=== PATIENT | male | born 1990 | race Two or more races ===

== ENCOUNTER 2016-06-24 21:51 | Emergency (ER) | payer OTHER ==
[2016-06-24] MEDS ORDERED: KETOROLAC 30 MG/ML VIAL (J1885) As Ordered ONE (22:17)
[2016-06-24] MEDS ORDERED: ONDANSETRON 4MG/2ML VIAL (J2405) As Ordered ONE (22:17)
[2016-06-24 22:31] LABS: BASO % 0.2 % (0.0-1.0); EOS # 0.2 K/mm3 (0.0-0.50); EOS % 2.7 % (0.0-3.0); LARGE UNSTAINED CELL # 0.1 K/mm3 (0.0-0.4); LARGE UNSTAINED CELL % 1.3 % (0.0-4.0); LYMPH # 3.5 K/mm3 (1.5-6.5); LYMPH % 7.6 % (24.0-44.0); MEAN CORPUSCULAR HEMOGLOBIN 30.2 pg (27.0-33.0); MEAN CORPUSCULAR HGB CONC 34.1 g/dl (32.0-36.5); MEAN CORPUSCULAR VOLUME 88.6 fl (80.0-96.0); MONO # 0.4 K/mm3 (0.0-0.8); MONO % 4.6 % (0.0-5.0); NEUTROPHILS % 83.6 % (36.0-66.0); PLATELET COUNT, AUTOMATED 235 k/mm3 (150-450); RED CELL DISTRIBUTION WIDTH 12.9 % (11.5-14.5); WHITE BLOOD COUNT 8.4 K/mm3 (4.0-10.0)
[2016-06-24 22:34] LABS: INR 1.13
[2016-06-24 22:47] LABS: ALBUMIN 3.5 GM/DL (3.2-5.2); ALBUMIN/GLOBULIN RATIO 1.06 (1.00-1.93); ALKALINE PHOSPHATASE 76 U/L (45-117); ALT/SGPT 21 U/L (12-78); AMYLASE 43 U/L (25-115); ANION GAP 9 MEQ/L (8-16); AST/SGOT 12 U/L (15-37); BILIRUBIN,DIRECT 0.2 MG/DL (0.0-0.2); BILIRUBIN,TOTAL 0.6 MG/DL (0.2-1.0); BLOOD UREA NITROGEN 14 MG/DL (7-18); CALCIUM LEVEL 8.3 MG/DL (8.5-10.1); CARBON DIOXIDE LEVEL 27 MEQ/L (21-32); CHLORIDE LEVEL 105 MEQ/L (98-107); CREATININE FOR GFR 1.16 MG/DL (0.70-1.30); GLOMERULAR FILTRATION RATE > 60.0 (>60); GLUCOSE, FASTING 102 MG/DL (70-105); POTASSIUM SERUM 3.8 MEQ/L (3.5-5.1); SODIUM LEVEL 141 MEQ/L (136-145); TOTAL PROTEIN 6.8 GM/DL (6.4-8.2)
--- NOTE | 2016-06-24 23:36 | EDDOCDS ---
Nurse's Notes [facility] Name: Frandy Cruz Age: 26 yrs Sex: Male : 1990 Arrival Date: 06/24/2016 Time: 21:51 Bed I5 / M5 Private [facility] Diagnosis: Nausea and vomiting;Diarrhea, unspecified Presentation: 06/24 21:53 Presenting complaint: Patient states: that he started vomiting this morning and can't ms18 keep any food or water down. Adult Sepsis Screening: The patient does not have new or worsening altered mentation. Patient's respiratory rate is less than 22. Systolic blood pressure is greater than 100. Patient has a qSOFA score of 0- Negative Sepsis Screen. Suicide/Homicide risk assessment- the patient denies having any suicidal and/or homicidal ideations and does not present with any other emotional, behavioral or mental health complaints. 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 Transition of care: patient was not received from another setting of care. 21:53 Acuity: DEN Level 3 ms18 21:53 Method Of Arrival: Walkin/Carried/Asstd ms18 Triage Assessment: 21:54 General: Appears in no apparent distress, comfortable, Behavior is appropriate for age, ms18 cooperative. Pain: Location: chest and body aches Pain currently is 4 out of 10 on a pain scale. HIV screening NA for this visit Offered previously. Neurological: No deficits noted. Respiratory: Airway is patent Respiratory effort is even, unlabored. Derm: Skin is pink, warm & dry. normal. Historical: - Allergies: no known allergies; - Home Meds: 1. albuterol sulfate 90 mcg/actuation Inhl aepb 2 puffs every 4-6 hours - PMHx: Asthma; - PSHx: none; - Social history: Smoking status: Patient states was never smoker of tobacco. No barriers to communication noted, The patient speaks fluent Faroese. - Family history: Not pertinent. - : The pt / caregiver states he / she is not on anticoagulants. Home medication list is obtained from the patient. - Exposure Risk Screening:: None identified. Screenin:32 Screening information is obtained from the patient. Fall risk: No risks identified. tm5 Assistance ADL's: requires no assistance with activities of daily living. Abuse/DV Screen: The patient / caregiver reports he/she is: not in a situation that causes fear, pain or injury. Nutritional screening: No deficits noted. Advance Directives: There is no active DNR order. home support is adequate. Assessment: 22:22 General: pt states that he just voided before he came to the ER & is aware that Urine tm5 sample is needed. 22:32 General: Appears in no apparent distress, Behavior is appropriate for age, cooperative. tm5 Pain: Denies pain. Neurological: Level of Consciousness is awake, alert, Oriented to person, place, time. Respiratory: No deficits noted. Airway is patent Respiratory effort is even, unlabored, Respiratory pattern is regular, symmetrical, Breath sounds are clear bilaterally. GI: Abdomen is non- distended Bowel sounds present X 4 quads. Abd is soft and non tender X 4 quads. Reports nausea, vomiting. : No deficits noted. Derm: Skin is pink, warm & dry. normal. 23:06 General: Appears in no apparent distress, comfortable, Behavior is appropriate for age, jmb cooperative. Neurological: Level of Consciousness is awake, alert, obeys commands, Oriented to person, place, time, Speech is normal, Facial symmetry appears normal, Facial symmetry: tongue is midline. Respiratory: Airway is patent Respiratory effort is even, unlabored, Respiratory pattern is regular, symmetrical. 23:26 General: Patient instructed on discharge instructions. Patient asked if there were any b questions regarding discharge, patient stated no. IV discontinued per hospital policy. Patient signed discharge instructions. Patient discharged in stable condition. . Vital Signs: 21:52 BP 151 / 70; Pulse 131; Resp 20; Temp 100.3(O); Pulse Ox 96% on R/A; Weight 93.44 kg dd6 (R); Height 5 ft. 7 in. (170.18 cm) (R); 23:31 BP 127 / 60; Pulse 117; Resp 20; Temp 99.5(O); Pulse Ox 96% on R/A; Pain 0/10; jmb 21:52 Body Mass Index 32.26 (93.44 kg, 170.18 cm) dd6 Vitals: 21:52 Log In Time: June 24, 2016 at 21:48. dd6 ED Course: 21:52 Patient visited by Shaji Rogers PCA. dd6 21:52 [facility] is Private Physician. dd6 21:52 Patient moved to Waiting dd6 21:53 Patient moved to Pre RCE dd6 21:54 Triage Initiated ms18 21:55 Patient moved to Triage 2 ms18 21:56 [facility] ke 21:56 Patient visited by Favian Horn FNP. ke 21:56 Patient visited by Favian Horn FNP. ke 22:08 Patient moved to I5 / M5 ms2 22:13 [facility] Payment Agreement was scanned into [employer] and attached to record. gjb 22:25 Patient visited by Elsa Mckeon,ANGELINA. tm5 22:25 Patient moved to radiology. tm5 22:28 Patient visited by Elsa Mckeon,ANGELINA. tm5 22:28 Patient moved back from radiology. tm5 22:32 Patient visited by Elsa Mckeon,ANGELINA. tm5 22:32 The patient / caregiver is instructed regarding the plan of care and ED course. Door tm5 closed. Lights dimmed. Pillow given. 22:32 Inserted saline lock: 20 gauge in left antecubital area and blood collected. Labs tm5 drawn. (by ED staff). 23:07 Patient visited by Chung Santana,ANGELINA. jmb 23:23 [facility] is Referral Physician. ke 23:26 Discontinued lock intact, bleeding controlled, pressure dressing applied, No jmb redness/swelling at site. No procedures done that require assistance. Administered Medications: 22:21 Drug: NS 0.9% 1000 ml [sodium chloride 0.9 % intravenous solution] Route: IV; Rate: tm5 bolus; Site: left antecubital; 22:22 Drug: Ondansetron 4 mg [ondansetron HCl 2 mg/mL intravenous solution (2 mL)] Route: tm5 IVP; Site: left antecubital; 22:22 Drug: ketorolac 30 mg [ketorolac 30 mg/mL (1 mL) injection solution (1 mL)] Route: IVP; tm5 Site: left antecubital; Order Results: Lab Order: Amylase; SPEC'M 06/24/16 22:20 Test: AMYLASE; Value: 43; Range: 25-115; Units: U/L; Status: F Lab Order: Basic Metabolic Profile; SPEC'M 06/24/16 22:20 Test: GLUCOSE, FASTING; Value: 102; Range: 70-105; Units: MG/DL; Status: F Test: BLOOD UREA NITROGEN; Value: 14; Range: 7-18; Units: MG/DL; Status: F Test: CREATININE FOR GFR; Value: 1.16; Range: 0.70-1.30; Units: MG/DL; Status: F Test: GLOMERULAR FILTRATION RATE; Value: > 60.0; Range: >60; Status: F Test: SODIUM LEVEL; Value: 141; Range: 136-145; Units: MEQ/L; Status: F Test: POTASSIUM SERUM; Value: 3.8; Range: 3.5-5.1; Units: MEQ/L; Status: F Test: CHLORIDE LEVEL; Value: 105; Range: 98-107; Units: MEQ/L; Status: F Test: CARBON DIOXIDE LEVEL; Value: 27; Range: 21-32; Units: MEQ/L; Status: F Test: ANION GAP; Value: 9; Range: 8-16; Units: MEQ/L; Status: F Test: CALCIUM LEVEL; Value: 8.3; Range: 8.5-10.1; Abnormal: Below low normal; Units: MG/DL; Status: F Test Note: ; Units are mL/min/1.73 m2 Chronic Kidney Disease Staging per NKF: Stage I & II GFR >=60 Normal to Mildly Decreased Stage III GFR 30-59 Moderately Decreased Stage IV GFR 15-29 Severely Decreased Stage V GFR <15 Very Little GFR Left ESRD GFR <15 on TAILER IN Lab Order: CBC with Diff; SPEC'M 06/24/16 22:20 Test: WHITE BLOOD COUNT; Value: 8.4; Range: 4.0-10.0; Units: K/mm3; Status: F Test: RED BLOOD COUNT; Value: 5.03; Range: 4.30-6.10; Units: M/mm3; Status: F Test: HEMOGLOBIN; Value: 15.2; Range: 14.0-18.0; Units: g/dl; Status: F Test: HEMATOCRIT; Value: 44.6; Range: 42.0-52.0; Units: %; Status: F Test: MEAN CORPUSCULAR VOLUME; Value: 88.6; Range: 80.0-96.0; Units: fl; Status: F Test: MEAN CORPUSCULAR HEMOGLOBIN; Value: 30.2; Range: 27.0-33.0; Units: pg; Status: F Test: MEAN CORPUSCULAR HGB CONC; Value: 34.1; Range: 32.0-36.5; Units: g/dl; Status: F Test: RED CELL DISTRIBUTION WIDTH; Value: 12.9; Range: 11.5-14.5; Units: %; Status: F Test: PLATELET COUNT, AUTOMATED; Value: 235; Range: 150-450; Units: k/mm3; Status: F Test: NEUTROPHILS %; Value: 83.6; Range: 36.0-66.0; Abnormal: Above high normal; Units: %; Status: F Test: LYMPH %; Value: 7.6; Range: 24.0-44.0; Abnormal: Below low normal; Units: %; Status: F Test: MONO %; Value: 4.6; Range: 0.0-5.0; Units: %; Status: F Test: EOS %; Value: 2.7; Range: 0.0-3.0; Units: %; Status: F Test: BASO %; Value: 0.2; Range: 0.0-1.0; Units: %; Status: F Test: LARGE UNSTAINED CELL %; Value: 1.3; Range: 0.0-4.0; Units: %; Status: F Test: NEUTROPHILS #; Value: 7.0; Range: 1.8-7.7; Units: K/mm3; Status: F Test: LYMPH #; Value: 3.5; Range: 1.5-6.5; Units: K/mm3; Status: F Test: MONO #; Value: 0.4; Range: 0.0-0.8; Units: K/mm3; Status: F Test: EOS #; Value: 0.2; Range: 0.0-0.50; Units: K/mm3; Status: F Test: BASO #; Value: 0.0; Range: 0.0-0.2; Units: K/mm3; Status: F Test: LARGE UNSTAINED CELL #; Value: 0.1; Range: 0.0-0.4; Units: K/mm3; Status: F Lab Order: Lipase; SPEC'M 06/24/16 22:20 Test: LIPASE; Value: 59; Range: 73-393; Abnormal: Below low normal; Units: U/L; Status: F Lab Order: Liver Profile; SPEC'M 06/24/16 22:20 Test: AST/SGOT; Value: 12; Range: 15-37; Abnormal: Below low normal; Units: U/L; Status: F Test: ALT/SGPT; Value: 21; Range: 12-78; Units: U/L; Status: F Test: ALKALINE PHOSPHATASE; Value: 76; Range: 45-117; Units: U/L; Status: F Test: BILIRUBIN,TOTAL; Value: 0.6; Range: 0.2-1.0; Units: MG/DL; Status: F Test: BILIRUBIN,DIRECT; Value: 0.2; Range: 0.0-0.2; Units: MG/DL; Status: F Test: TOTAL PROTEIN; Value: 6.8; Range: 6.4-8.2; Units: GM/DL; Status: F Test: ALBUMIN; Value: 3.5; Range: 3.2-5.2; Units: GM/DL; Status: F Test: ALBUMIN/GLOBULIN RATIO; Value: 1.06; Range: 1.00-1.93; Status: F Lab Order: Prothrombin Time Profile\E\INR; [facility] 06/24/16 22:20 Test: PROTHROMBIN TIME; Value: 14.6; Range: 12.3-14.5; Abnormal: Above high normal; Units: SECONDS; Status: F Test: INR; Value: 1.13; Status: F Test Note: ; THERAPUTIC HUMAN INR VALUES INDICATIONS NORMAL RANGES PROPHYLAXIS/TREATMENT OF: VENOUS THROMBOSIS 2.0-3.0 PULMONARY EMBOLISM 2.0-3.0 PREVENTION OF SYSTEMIC EMBOLISM FROM: TISSUE HEART VALVES 2.0-3.0 ACUTE MYOCARDIAL INFARCTION 2.0-3.0 VALVULAR HEART DISEASE 2.0-3.0 ATRIAL FIBRILLATION 2.0-3.0 MECHANICAL VALVES(HIGH RISK) 2.5-3.5 RECURRENT MYOCARDIAL INFARCTION 2.5-3.5 Outcome: 23:24 Discharge ordered by Provider. elliott 23:26 Discharge Assessment: Patient awake, alert and oriented x 3. No cognitive and/or jmb functional deficits noted. Patient verbalized understanding of disposition instructions. Patient awake and alert. obeys commands, Oriented to person, place and time. Patient verbalized understanding of disposition instructions. Patient has no functional deficits. patient administered narcotics - no. The following High Risk Discharge criteria are identified: None. Discharged to home ambulatory, with family. Condition: stable Condition: improved. Discharge instructions given to patient, Instructed on discharge instructions, follow up and referral plans. Demonstrated understanding of instructions, Pt was receptive of discharge instructions/ teaching. No special radiology studies were completed. Property sent home with patient. 23:34 Patient left the ED. emilyb Signatures: Carson Floyd,RN RN ms2 Favian Horn, MERCHANT SEAMAN MERCHANT SEAMAN Shaji Loo, SNUFF BOX FINISHER SNUFF BOX FINISHER dd6 Chung Santana,RN RN Sapphire CruzRN RN ms18 Carolyne Hernández Tonya,RN RN tm5 BRANNON
--- NOTE | 2016-06-24 23:36 | EDDOCDS ---
Physician Documentation [facility] Name: Frandy Cruz Age: 26 yrs Sex: Male : 1990 Arrival Date: 06/24/2016 Time: 21:51 Bed I5 / M5 Private [facility] Disposition: 06/24/16 23:24 Discharged to Home/Self Care. Impression: Nausea and vomiting, Diarrhea, unspecified. - Condition is Stable. - Discharge Instructions: Food Choices to Help Relieve Diarrhea, Adult, Diarrhea, Nausea and Vomiting. - Prescriptions for Zofran 4 mg Oral Tablet - take 1 tablet by ORAL route 4 times per day As needed; 10 tablet. - Medication Reconciliation, Local Pharmacy Hours, Work Release Form - 1 day form. - [facility]; When: 4 - 5 days; Reason: Recheck today's complaints, Continuance of care. - Problem is an ongoing problem. - Symptoms have improved. Historical: - Allergies: no known allergies; - Home Meds: 1. albuterol sulfate 90 mcg/actuation Inhl aepb 2 puffs every 4-6 hours - PMHx: Asthma; - PSHx: none; - Social history: Smoking status: Patient states was never smoker of tobacco. No barriers to communication noted, The patient speaks fluent Occitan. - Family history: Not pertinent. - : The pt / caregiver states he / she is not on anticoagulants. Home medication list is obtained from the patient. - Exposure Risk Screening:: None identified. Vital Signs: 06/24 21:52 BP 151 / 70; Pulse 131; Resp 20; Temp 100.3(O); Pulse Ox 96% on R/A; Weight 93.44 kg / dd6 206 lbs (R); Height 5 ft. 7 in. (170.18 cm) (R); 23:31 BP 127 / 60; Pulse 117; Resp 20; Temp 99.5(O); Pulse Ox 96% on R/A; Pain 0/10; jmb 21:52 Body Mass Index 32.26 (93.44 kg, 170.18 cm) dd6 MDM: 22:06 NS 0.9% 1000 ml IV at bolus once ordered. ke 22:06 Ondansetron 4 mg IVP once ordered. ke 22:06 ketorolac 30 mg IVP once ordered. ke 22:06 IV Saline Lock ordered. ke 22:06 Undress patient appropriately for examination ordered. ke 22:07 Amylase Ordered. EDMS 22:07 Basic Metabolic Profile Ordered. EDMS 22:07 CBC with Diff Ordered. EDMS 22:07 Lipase Ordered. EDMS 22:07 Liver Profile Ordered. EDMS 22:08 Prothrombin Time Profile\E\INR Ordered. EDMS 22:08 Urinalysis Ordered. EDMS 22:08 Urine Culture Ordered. EDMS 22:08 Abdomen, Flat\E\Upright,PA Chest Ordered. EDMS 22:08 NOTHING BY MOUTH+DIET ordered. EDMS 22:13 [facility] Payment Agreement was scanned into [employer] and attached to record. rachel 22:13 Financial registration complete. gjb 23:20 Basic Metabolic Profile Reviewed. ke 23:20 CBC with Diff Reviewed. ke 23:20 Lipase Reviewed. ke 23:20 Liver Profile Reviewed. ke 23:20 Prothrombin Time Profile\E\INR Reviewed. ke 23:20 Amylase Reviewed. ke Administered Medications: 22:21 Drug: NS 0.9% 1000 ml [sodium chloride 0.9 % intravenous solution] Route: IV; Rate: tm5 bolus; Site: left antecubital; 22:22 Drug: Ondansetron 4 mg [ondansetron HCl 2 mg/mL intravenous solution (2 mL)] Route: tm5 IVP; Site: left antecubital; 22:22 Drug: ketorolac 30 mg [ketorolac 30 mg/mL (1 mL) injection solution (1 mL)] Route: IVP; tm5 Site: left antecubital; Signatures: [facility] Favian Horn, HAUL DRIVER HAUL DRIVER Chung MontesRN RN Sapphire Cruz RN RN ms18 Carolyne Hernández Tonya, RN RN tm5 The chart was reviewed and I authenticate all verbal orders and agree with the evaluation and treatment provided.Attachments: 22:13 [facility] Payment Agreement rachel MTDD
--- NOTE | 2016-06-25 08:08 | REP ---
Clinical: Epigastric and abdominal pain. Technique: Upright view of the chest with supine and upright views of the abdomen and pelvis. Findings: Frontal upright view of the chest demonstrates no acute cardiopulmonary process or free air below the diaphragm to suspect pneumoperitoneum. Supine and upright views of the abdomen and pelvis demonstrate nonspecific bowel gas pattern without obstruction or perforation. No organomegaly. Very small calcific flecks are identified scattered throughout the abdomen of uncertain etiology but nonacute in their appearance and distribution. Skeletal structures normal for age. Impression: Nonspecific bowel gas pattern. Signed by Pj Cheney MD 06/25/2016 08:00 A
--- NOTE | 2016-06-27 00:36 | EDDOCDS ---
Nurse's Notes [employer] Name: Frandy Cruz Age: 26 yrs Sex: Male : 1990 Arrival Date: 06/24/2016 Time: 21:51 Bed I5 / M5 [facility] Diagnosis: Nausea and vomiting;Diarrhea, unspecified Presentation: 06/24 21:53 Presenting complaint: Patient states: that he started vomiting this morning and can't ms18 keep any food or water down. Adult Sepsis Screening: The patient does not have new or worsening altered mentation. Patient's respiratory rate is less than 22. Systolic blood pressure is greater than 100. Patient has a qSOFA score of 0- Negative Sepsis Screen. Suicide/Homicide risk assessment- the patient denies having any suicidal and/or homicidal ideations and does not present with any other emotional, behavioral or mental health complaints. Status: The patient is an active duty service writer advisor. Transition of care: patient was not received from another setting of care. 21:53 Acuity: DEN Level 3 ms18 21:53 Method Of Arrival: Walkin/Carried/Asstd ms18 Triage Assessment: 21:54 General: Appears in no apparent distress, comfortable, Behavior is appropriate for age, ms18 cooperative. Pain: Location: chest and body aches Pain currently is 4 out of 10 on a pain scale. HIV screening NA for this visit Offered previously. Neurological: No deficits noted. Respiratory: Airway is patent Respiratory effort is even, unlabored. Derm: Skin is pink, warm & dry. normal. Historical: - Allergies: no known allergies; - Home Meds: 1. albuterol sulfate 90 mcg/actuation Inhl aepb 2 puffs every 4-6 hours - PMHx: Asthma; - PSHx: none; - Social history: Smoking status: Patient states was never smoker of tobacco. No barriers to communication noted, The patient speaks fluent Yi. - Family history: Not pertinent. - : The pt / caregiver states he / she is not on anticoagulants. Home medication list is obtained from the patient. - Exposure Risk Screening:: None identified. Screenin:32 Screening information is obtained from the patient. Fall risk: No risks identified. tm5 Assistance ADL's: requires no assistance with activities of daily living. Abuse/DV Screen: The patient / caregiver reports he/she is: not in a situation that causes fear, pain or injury. Nutritional screening: No deficits noted. Advance Directives: There is no active DNR order. home support is adequate. Assessment: 22:22 General: pt states that he just voided before he came to the ER & is aware that Urine tm5 sample is needed. 22:32 General: Appears in no apparent distress, Behavior is appropriate for age, cooperative. tm5 Pain: Denies pain. Neurological: Level of Consciousness is awake, alert, Oriented to person, place, time. Respiratory: No deficits noted. Airway is patent Respiratory effort is even, unlabored, Respiratory pattern is regular, symmetrical, Breath sounds are clear bilaterally. GI: Abdomen is non- distended Bowel sounds present X 4 quads. Abd is soft and non tender X 4 quads. Reports nausea, vomiting. : No deficits noted. Derm: Skin is pink, warm & dry. normal. 23:06 General: Appears in no apparent distress, comfortable, Behavior is appropriate for age, jmb cooperative. Neurological: Level of Consciousness is awake, alert, obeys commands, Oriented to person, place, time, Speech is normal, Facial symmetry appears normal, Facial symmetry: tongue is midline. Respiratory: Airway is patent Respiratory effort is even, unlabored, Respiratory pattern is regular, symmetrical. 23:26 General: Patient instructed on discharge instructions. Patient asked if there were any b questions regarding discharge, patient stated no. IV discontinued per hospital policy. Patient signed discharge instructions. Patient discharged in stable condition. . Vital Signs: 21:52 BP 151 / 70; Pulse 131; Resp 20; Temp 100.3(O); Pulse Ox 96% on R/A; Weight 93.44 kg dd6 (R); Height 5 ft. 7 in. (170.18 cm) (R); 23:31 BP 127 / 60; Pulse 117; Resp 20; Temp 99.5(O); Pulse Ox 96% on R/A; Pain 0/10; jmb 21:52 Body Mass Index 32.26 (93.44 kg, 170.18 cm) dd6 Vitals: 21:52 Log In Time: June 24, 2016 at 21:48. dd6 ED Course: 21:52 Patient visited by Shaji Rogers PCA. dd6 21:52 [facility] is Private Physician. dd6 21:52 Patient moved to Waiting dd6 21:53 Patient moved to Pre RCE dd6 21:54 Triage Initiated ms18 21:55 Patient moved to Triage 2 ms18 21:56 [facility] ke 21:56 Patient visited by Favian Horn FNP. ke 21:56 Patient visited by Favian Horn FNP. ke 22:08 Patient moved to I5 / M5 ms2 22:13 [facility] Payment Agreement was scanned into [employer] and attached to record. gjb 22:25 Patient visited by Elsa Mckeon,RN. tm5 22:25 Patient moved to radiology. tm5 22:28 Patient visited by Elsa Mckeon,ANGELINA. tm5 22:28 Patient moved back from radiology. tm5 22:32 Patient visited by Elsa Mckeon,ANGELINA. tm5 22:32 The patient / caregiver is instructed regarding the plan of care and ED course. Door tm5 closed. Lights dimmed. Pillow given. 22:32 Inserted saline lock: 20 gauge in left antecubital area and blood collected. Labs tm5 drawn. (by ED staff). 23:07 Patient visited by Chung Santana,ANGELINA. jmb 23:23 [facility] is Referral Physician. ke 23:26 Discontinued lock intact, bleeding controlled, pressure dressing applied, No jmb redness/swelling at site. No procedures done that require assistance. 06/25 08:49 Abdomen, Flat\E\Upright,PA Chest Returned. EDMS 12:02 T-Sheet-- Draft Copy was scanned into [employer] and attached to record. gb Administered Medications: 06/24 22:21 Drug: NS 0.9% 1000 ml [sodium chloride 0.9 % intravenous solution] Route: IV; Rate: tm5 bolus; Site: left antecubital; 22:22 Drug: Ondansetron 4 mg [ondansetron HCl 2 mg/mL intravenous solution (2 mL)] Route: tm5 IVP; Site: left antecubital; 22:22 Drug: ketorolac 30 mg [ketorolac 30 mg/mL (1 mL) injection solution (1 mL)] Route: IVP; tm5 Site: left antecubital; Order Results: Lab Order: Amylase; SPEC'M 06/24/16 22:20 Test: AMYLASE; Value: 43; Range: 25-115; Units: U/L; Status: F Lab Order: Basic Metabolic Profile; 06/24/16 22:20 Test: GLUCOSE, FASTING; Value: 102; Range: 70-105; Units: MG/DL; Status: F Test: BLOOD UREA NITROGEN; Value: 14; Range: 7-18; Units: MG/DL; Status: F Test: CREATININE FOR GFR; Value: 1.16; Range: 0.70-1.30; Units: MG/DL; Status: F Test: GLOMERULAR FILTRATION RATE; Value: > 60.0; Range: >60; Status: F Test: SODIUM LEVEL; Value: 141; Range: 136-145; Units: MEQ/L; Status: F Test: POTASSIUM SERUM; Value: 3.8; Range: 3.5-5.1; Units: MEQ/L; Status: F Test: CHLORIDE LEVEL; Value: 105; Range: 98-107; Units: MEQ/L; Status: F Test: CARBON DIOXIDE LEVEL; Value: 27; Range: 21-32; Units: MEQ/L; Status: F Test: ANION GAP; Value: 9; Range: 8-16; Units: MEQ/L; Status: F Test: CALCIUM LEVEL; Value: 8.3; Range: 8.5-10.1; Abnormal: Below low normal; Units: MG/DL; Status: F Test Note: ; Units are mL/min/1.73 m2 Chronic Kidney Disease Staging per NKF: Stage I & II GFR >=60 Normal to Mildly Decreased Stage III GFR 30-59 Moderately Decreased Stage IV GFR 15-29 Severely Decreased Stage V GFR <15 Very Little GFR Left ESRD GFR <15 on ENGINEERING PROFESSOR Lab Order: CBC with Diff; 06/24/16 22:20 Test: WHITE BLOOD COUNT; Value: 8.4; Range: 4.0-10.0; Units: K/mm3; Status: F Test: RED BLOOD COUNT; Value: 5.03; Range: 4.30-6.10; Units: M/mm3; Status: F Test: HEMOGLOBIN; Value: 15.2; Range: 14.0-18.0; Units: g/dl; Status: F Test: HEMATOCRIT; Value: 44.6; Range: 42.0-52.0; Units: %; Status: F Test: MEAN CORPUSCULAR VOLUME; Value: 88.6; Range: 80.0-96.0; Units: fl; Status: F Test: MEAN CORPUSCULAR HEMOGLOBIN; Value: 30.2; Range: 27.0-33.0; Units: pg; Status: F Test: MEAN CORPUSCULAR HGB CONC; Value: 34.1; Range: 32.0-36.5; Units: g/dl; Status: F Test: RED CELL DISTRIBUTION WIDTH; Value: 12.9; Range: 11.5-14.5; Units: %; Status: F Test: PLATELET COUNT, AUTOMATED; Value: 235; Range: 150-450; Units: k/mm3; Status: F Test: NEUTROPHILS %; Value: 83.6; Range: 36.0-66.0; Abnormal: Above high normal; Units: %; Status: F Test: LYMPH %; Value: 7.6; Range: 24.0-44.0; Abnormal: Below low normal; Units: %; Status: F Test: MONO %; Value: 4.6; Range: 0.0-5.0; Units: %; Status: F Test: EOS %; Value: 2.7; Range: 0.0-3.0; Units: %; Status: F Test: BASO %; Value: 0.2; Range: 0.0-1.0; Units: %; Status: F Test: LARGE UNSTAINED CELL %; Value: 1.3; Range: 0.0-4.0; Units: %; Status: F Test: NEUTROPHILS #; Value: 7.0; Range: 1.8-7.7; Units: K/mm3; Status: F Test: LYMPH #; Value: 3.5; Range: 1.5-6.5; Units: K/mm3; Status: F Test: MONO #; Value: 0.4; Range: 0.0-0.8; Units: K/mm3; Status: F Test: EOS #; Value: 0.2; Range: 0.0-0.50; Units: K/mm3; Status: F Test: BASO #; Value: 0.0; Range: 0.0-0.2; Units: K/mm3; Status: F Test: LARGE UNSTAINED CELL #; Value: 0.1; Range: 0.0-0.4; Units: K/mm3; Status: F Lab Order: Lipase; [facility]' 06/24/16 22:20 Test: LIPASE; Value: 59; Range: 73-393; Abnormal: Below low normal; Units: U/L; Status: F Lab Order: Liver Profile; [facility]' 06/24/16 22:20 Test: AST/SGOT; Value: 12; Range: 15-37; Abnormal: Below low normal; Units: U/L; Status: F Test: ALT/SGPT; Value: 21; Range: 12-78; Units: U/L; Status: F Test: ALKALINE PHOSPHATASE; Value: 76; Range: 45-117; Units: U/L; Status: F Test: BILIRUBIN,TOTAL; Value: 0.6; Range: 0.2-1.0; Units: MG/DL; Status: F Test: BILIRUBIN,DIRECT; Value: 0.2; Range: 0.0-0.2; Units: MG/DL; Status: F Test: TOTAL PROTEIN; Value: 6.8; Range: 6.4-8.2; Units: GM/DL; Status: F Test: ALBUMIN; Value: 3.5; Range: 3.2-5.2; Units: GM/DL; Status: F Test: ALBUMIN/GLOBULIN RATIO; Value: 1.06; Range: 1.00-1.93; Status: F Lab Order: Prothrombin Time Profile\E\INR; [facility] 06/24/16 22:20 Test: PROTHROMBIN TIME; Value: 14.6; Range: 12.3-14.5; Abnormal: Above high normal; Units: SECONDS; Status: F Test: INR; Value: 1.13; Status: F Test Note: ; THERAPUTIC HUMAN INR VALUES INDICATIONS NORMAL RANGES PROPHYLAXIS/TREATMENT OF: VENOUS THROMBOSIS 2.0-3.0 PULMONARY EMBOLISM 2.0-3.0 PREVENTION OF SYSTEMIC EMBOLISM FROM: TISSUE HEART VALVES 2.0-3.0 ACUTE MYOCARDIAL INFARCTION 2.0-3.0 VALVULAR HEART DISEASE 2.0-3.0 ATRIAL FIBRILLATION 2.0-3.0 MECHANICAL VALVES(HIGH RISK) 2.5-3.5 RECURRENT MYOCARDIAL INFARCTION 2.5-3.5 Radiology Order: Abdomen, Flat\E\Upright,PA Chest Test: Abdomen, Flat\E\Upright,PA Chest REASON FOR EXAMINATION: Abdomen Pain; Clinical: Epigastric and abdominal pain.; ; Technique: Upright view of the chest with supine and upright views of the; abdomen and pelvis.; ; Findings: Frontal upright view of the chest demonstrates no acute; cardiopulmonary process or free air below the diaphragm to suspect; pneumoperitoneum. Supine and upright views of the abdomen and pelvis demonstrate; nonspecific bowel gas pattern without obstruction or perforation. No; organomegaly. Very small calcific flecks are identified scattered throughout the; abdomen of uncertain etiology but nonacute in their appearance and distribution.; Skeletal structures normal for age.; ; Impression:; Nonspecific bowel gas pattern.; ; ; Signed by; Pj Cheney MD 06/25/2016 08:00 A; Outcome: 23:24 Discharge ordered by Provider. ke 23:26 Discharge Assessment: Patient awake, alert and oriented x 3. No cognitive and/or jmb functional deficits noted. Patient verbalized understanding of disposition instructions. Patient awake and alert. obeys commands, Oriented to person, place and time. Patient verbalized understanding of disposition instructions. Patient has no functional deficits. patient administered narcotics - no. The following High Risk Discharge criteria are identified: None. Discharged to home ambulatory, with family. Condition: stable Condition: improved. Discharge instructions given to patient, Instructed on discharge instructions, follow up and referral plans. Demonstrated understanding of instructions, Pt was receptive of discharge instructions/ teaching. No special radiology studies were completed. Property sent home with patient. 23:34 Patient left the ED. boaz Signatures: Dispatcher [employer] EDMS Carson Floyd,RN RN ms2 Harriett Wen, Reg Reg gb Favian Horn, HVAC R TECH HVAC R TECH ke Shaji Rogers, CUTTER OUT CUTTER OUT dd6 Chung Santana RN RN jmb Smith, Mallory, RN RN ms18 Carolyne Hernández Tonya, RN RN tm5 Chart Complete MTDD
--- NOTE | 2016-06-27 00:36 | EDDOCDS ---
Physician Documentation [facility] Name: Frandy Cruz Age: 26 yrs Sex: Male : 1990 Arrival Date: 06/24/2016 Time: 21:51 Bed I5 / M5 [facility] Disposition: 06/24/16 23:24 Discharged to Home/Self Care. Impression: Nausea and vomiting, Diarrhea, unspecified. - Condition is Stable. - Discharge Instructions: Food Choices to Help Relieve Diarrhea, Adult, Diarrhea, Nausea and Vomiting. - Prescriptions for Zofran 4 mg Oral Tablet - take 1 tablet by ORAL route 4 times per day As needed; 10 tablet. - Medication Reconciliation, Local Pharmacy Hours, Work Release Form - 1 day form. - [facility]; When: 4 - 5 days; Reason: Recheck today's complaints, Continuance of care. - Problem is an ongoing problem. - Symptoms have improved. Historical: - Allergies: no known allergies; - Home Meds: 1. albuterol sulfate 90 mcg/actuation Inhl aepb 2 puffs every 4-6 hours - PMHx: Asthma; - PSHx: none; - Social history: Smoking status: Patient states was never smoker of tobacco. No barriers to communication noted, The patient speaks fluent Slovak. - Family history: Not pertinent. - : The pt / caregiver states he / she is not on anticoagulants. Home medication list is obtained from the patient. - Exposure Risk Screening:: None identified. Vital Signs: 06/24 21:52 BP 151 / 70; Pulse 131; Resp 20; Temp 100.3(O); Pulse Ox 96% on R/A; Weight 93.44 kg / dd6 206 lbs (R); Height 5 ft. 7 in. (170.18 cm) (R); 23:31 BP 127 / 60; Pulse 117; Resp 20; Temp 99.5(O); Pulse Ox 96% on R/A; Pain 0/10; jmb 21:52 Body Mass Index 32.26 (93.44 kg, 170.18 cm) dd6 MDM: 22:06 NS 0.9% 1000 ml IV at bolus once ordered. ke 22:06 Ondansetron 4 mg IVP once ordered. ke 22:06 ketorolac 30 mg IVP once ordered. ke 22:06 IV Saline Lock ordered. ke 22:06 Undress patient appropriately for examination ordered. ke 22:07 Amylase Ordered. EDMS 22:07 Basic Metabolic Profile Ordered. EDMS 22:07 CBC with Diff Ordered. EDMS 22:07 Lipase Ordered. EDMS 22:07 Liver Profile Ordered. EDMS 22:08 Prothrombin Time Profile\E\INR Ordered. EDMS 22:08 Urinalysis Ordered. EDMS 22:08 Urine Culture Ordered. EDMS 22:08 Abdomen, Flat\E\Upright,PA Chest Ordered. EDMS 22:08 NOTHING BY MOUTH+DIET ordered. EDMS 22:13 [facility] [place] Payment Agreement was scanned into [employer] and attached to record. [facility] :13 Financial registration complete. gjb 23:20 Basic Metabolic Profile Reviewed. ke 23:20 CBC with Diff Reviewed. ke 23:20 Lipase Reviewed. ke 23:20 Liver Profile Reviewed. ke 23:20 Prothrombin Time Profile\E\INR Reviewed. ke 23:20 Amylase Reviewed. elliott 06/25 12:02 T-Sheet-- Draft Copy was scanned into [employer] and attached to record. gb Administered Medications: 06/24 22:21 Drug: NS 0.9% 1000 ml [sodium chloride 0.9 % intravenous solution] Route: IV; Rate: tm5 bolus; Site: left antecubital; 22:22 Drug: Ondansetron 4 mg [ondansetron HCl 2 mg/mL intravenous solution (2 mL)] Route: tm5 IVP; Site: left antecubital; 22:22 Drug: ketorolac 30 mg [ketorolac 30 mg/mL (1 mL) injection solution (1 mL)] Route: IVP; tm5 Site: left antecubital; Signatures: Dispatcher [employer] EDMS Harriett Wen, Reg Reg gb Favian Horn, C IRON WORKER C IRON WORKER Chung MontesRN RN Sapphire Cruz RN RN ms18 Carolyne Hernández Tonya, RN RN tm5 The chart was reviewed and I authenticate all verbal orders and agree with the evaluation and treatment provided.Attachments: 22:13 [facility] Payment Agreement [facility] 06/25 12:02 T-Sheet-- Draft Copy gb Chart Complete MTDD
--- NOTE | 2016-06-27 00:36 | EDDOCDS ---
Physician Documentation [facility] Name: Frandy Cruz Age: 26 yrs Sex: Male : 1990 Arrival Date: 06/24/2016 Time: 21:51 Bed I5 / M5 Private [facility] Disposition: 06/24/16 23:24 Discharged to Home/Self Care. Impression: Nausea and vomiting, Diarrhea, unspecified. - Condition is Stable. - Discharge Instructions: Food Choices to Help Relieve Diarrhea, Adult, Diarrhea, Nausea and Vomiting. - Prescriptions for Zofran 4 mg Oral Tablet - take 1 tablet by ORAL route 4 times per day As needed; 10 tablet. - Medication Reconciliation, Local Pharmacy Hours, Work Release Form - 1 day form. - [facility]; When: 4 - 5 days; Reason: Recheck today's complaints, Continuance of care. - Problem is an ongoing problem. - Symptoms have improved. Historical: - Allergies: no known allergies; - Home Meds: 1. albuterol sulfate 90 mcg/actuation Inhl aepb 2 puffs every 4-6 hours - PMHx: Asthma; - PSHx: none; - Social history: Smoking status: Patient states was never smoker of tobacco. No barriers to communication noted, The patient speaks fluent Italian. - Family history: Not pertinent. - : The pt / caregiver states he / she is not on anticoagulants. Home medication list is obtained from the patient. - Exposure Risk Screening:: None identified. Vital Signs: 06/24 21:52 BP 151 / 70; Pulse 131; Resp 20; Temp 100.3(O); Pulse Ox 96% on R/A; Weight 93.44 kg / dd6 206 lbs (R); Height 5 ft. 7 in. (170.18 cm) (R); 23:31 BP 127 / 60; Pulse 117; Resp 20; Temp 99.5(O); Pulse Ox 96% on R/A; Pain 0/10; jmb 21:52 Body Mass Index 32.26 (93.44 kg, 170.18 cm) dd6 MDM: 22:06 NS 0.9% 1000 ml IV at bolus once ordered. ke 22:06 Ondansetron 4 mg IVP once ordered. ke 22:06 ketorolac 30 mg IVP once ordered. ke 22:06 IV Saline Lock ordered. ke 22:06 Undress patient appropriately for examination ordered. ke 22:07 Amylase Ordered. EDMS 22:07 Basic Metabolic Profile Ordered. EDMS 22:07 CBC with Diff Ordered. EDMS 22:07 Lipase Ordered. EDMS 22:07 Liver Profile Ordered. EDMS 22:08 Prothrombin Time Profile\E\INR Ordered. EDMS 22:08 Urinalysis Ordered. EDMS 22:08 Urine Culture Ordered. EDMS 22:08 Abdomen, Flat\E\Upright,PA Chest Ordered. EDMS 22:08 NOTHING BY MOUTH+DIET ordered. EDMS 22:13 [facility] Payment Agreement was scanned into [employer] and attached to record. [facility] :13 Financial registration complete. gjb 23:20 Basic Metabolic Profile Reviewed. ke 23:20 CBC with Diff Reviewed. ke 23:20 Lipase Reviewed. ke 23:20 Liver Profile Reviewed. ke 23:20 Prothrombin Time Profile\E\INR Reviewed. ke 23:20 Amylase Reviewed. elliott 06/25 12:02 T-Sheet-- Draft Copy was scanned into [employer] and attached to record. gb Administered Medications: 06/24 22:21 Drug: NS 0.9% 1000 ml [sodium chloride 0.9 % intravenous solution] Route: IV; Rate: tm5 bolus; Site: left antecubital; 22:22 Drug: Ondansetron 4 mg [ondansetron HCl 2 mg/mL intravenous solution (2 mL)] Route: tm5 IVP; Site: left antecubital; 22:22 Drug: ketorolac 30 mg [ketorolac 30 mg/mL (1 mL) injection solution (1 mL)] Route: IVP; tm5 Site: left antecubital; Signatures: Dispatcher [employer] EDMS Harriett Wen, Reg Reg gb Favian Horn, PATTERN CARRIER PATTERN CARRIER Chung MontesRN RN Sapphire Cruz RN RN ms18 Carolyne Hernández Tonya, RN RN tm5 The chart was reviewed and I authenticate all verbal orders and agree with the evaluation and treatment provided.Attachments: 22:13 [facility] Payment Agreement [facility] 06/25 12:02 T-Sheet-- Draft Copy gb Chart Complete MTDD
== END 2016-06-24 23:34 | disposition home or self-care (01) ==
LOC: M ED 21:51
DX: K52.9 Noninfective gastroenteritis and colitis, unspecified (principal); J45.909 Unspecified asthma, uncomplicated; Z79.51 Long term (current) use of inhaled steroids
CPT/HCPCS: 36415; 74022; 80048; 80076; 82150; 83690; 85025; 85610; 96374; 96375; 99284; J1885; J2405